=== PATIENT | female | born 1955 | race Caucasian/White ===

== ENCOUNTER → 2018-02-07 | Outpatient (CLI) | payer BC ==
--- NOTE | 2018-02-07 16:53 | Diagnostic Imaging Report ---
EXAM: CT Abdomen and Pelvis WITHOUT contrast INDICATION: \[id number] \S\1600 \S\CALCULUS OF KIDNEY COMPARISON: None. TECHNIQUE: Abdomen and pelvis were scanned utilizing a multidetector helical scanner from the lung base to the pubic symphysis without administration of IV contrast. Absence of intravenous contrast decreases sensitivity for detection of focal lesions and vascular pathology. Coronal and sagittal reformations were obtained. Routine protocol was performed. IV CONTRAST: None ORAL CONTRAST: Water COMPLICATIONS: None RADIATION DOSE: Total DLP: 530.99 mGy*cm Estimated effective dose: (DLP x 0.015 x size factor) mSv CTDIvol has been reviewed. It is below the limits set by the Radiation Protocol Committee (RPC). FINDINGS: LINES and TUBES: None. LOWER THORAX: Unremarkable. Lingular atelectasis/scarring. HEPATOBILIARY: Unenhanced liver is unremarkable. No biliary ductal dilation. GALLBLADDER: Cholecystectomy. SPLEEN: No splenomegaly. PANCREAS: No focal masses or ductal dilatation. ADRENALS: No adrenal nodules KIDNEYS/URETERS: No hydronephrosis. No cystic or solid mass lesions. 0.8 cm left inferior pole calculus. GI TRACT: No abnormal distention, wall thickening, or evidence of bowel obstruction. Appendix is normal. PELVIC ORGANS/BLADDER: Uterus and adnexa are unremarkable on unenhanced CT assessment. Bladder is decompressed, limiting evaluation. Pelvic phleboliths. LYMPH NODES: No lymphadenopathy. VESSELS: Unremarkable. PERITONEUM / RETROPERITONEUM: No free air or fluid. BONES: Unremarkable. SOFT TISSUES: Unremarkable. IMPRESSION: 1. 0.8 cm left inferior pole renal calculus. 2. No evidence of obstructive urolithiasis. Signed by: Dr. Kike Brown MD on 02/07/2018 4:49 PM
== END ==
LOC: CT 15:42
PROVIDERS: ATTEND Urology
DX: N20.0 Calculus of kidney (principal)
CPT/HCPCS: 74176

== ENCOUNTER → 2018-02-18 | Day surgery (SDC) | payer BC ==
[~2018-02-18] MED LIST: ATORVASTATIN CA20 MG PO; CEFTRIAXONE SOD 1 GM VIAL ONE; DEXAMETHASONE SOD PHOS INJ 4 MG/ML VIAL ONE; EPHEDRINE SULFATE INJ 50 MG/10 ML SYR ONE; FENTANYL CITRATE/PF 100MCG/2 ML INJ ONE; LIDOCAINE HCL 2% LOCAL INJ 5 ML SDV VIAL INJ ONE; LISINOPRIL2.5 MG PO; MIDAZOLAM HCL 2 MG/2 ML VIAL ONE; ONDANSETRON HCL INJ 2 MG/ML VIAL ONE; PHENYLEPHRINE HCL 1% 10 MG/ML VIAL ONE; PROPOFOL IV EMULSION 10 MG/ML 20 ML VIAL ONE; PROZAC20 MG PO; SEVOFLURANE INHAL SOLN 250 ML PEN BTL ONE; VALTREX500 MG PO; VIT D PO
--- OUTSIDE RECORDS SUMMARY | 2018-02-18 05:49 | XMS REPORT ---
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 Allergies, Adverse Reactions, Alerts This patient has no known allergies or adverse reactions. Medications This patient has no known medications. Results Test Description Test Time Test Comments Text Results Atomic Results Result Comments CT ABDOMEN/PELVIS WO [place] [address] Patient Name: CHRISTOPHER GIRON MR #: [id number] : 1955 Age/Sex: 62/F Req #: [id number] Adm Physician: Ordered by: GO US MD Report #: [id number] Location: CT Room/Bed: Procedure: [id number] CT/CT ABDOMEN/PELVIS WO Exam Date: 02/07/18 Exam Time: 1600 REPORT STATUS: Signed EXAM: CT Abdomen and Pelvis WITHOUT contrast INDICATION: COMPARISON: None. TECHNIQUE: Abdomen and pelvis were scanned utilizing a multidetector helical scanner from the lung base to the pubic symphysis without administration of IV contrast. Absence of intravenous contrast decreases sensitivity for detection of focal lesions and vascular pathology. Coronal and sagittal reformations were obtained. Routine protocol was performed. IV CONTRAST: None ORAL CONTRAST: Water COMPLICATIONS: None RADIATION DOSE: Total DLP: 530.99 mGy*cm Estimated effective dose: (DLP x 0.015 x size factor) mSv CTDIvol has been reviewed. It is below the limits set by the Radiation Protocol Committee (RPC) . FINDINGS: LINES and TUBES: None. LOWER THORAX: Unremarkable. Lingular atelectasis/scarring. HEPATOBILIARY: Unenhanced liver is unremarkable. No biliary ductal dilation. GALLBLADDER: Cholecystectomy. SPLEEN: No splenomegaly. PANCREAS: No focal masses or ductal dilatation. ADRENALS: No adrenal nodules KIDNEYS/URETERS: No hydronephrosis. No cystic or solid mass lesions. 0.8 cm left inferior pole calculus. GI TRACT: No abnormal distention, wall thickening, or evidence of bowel obstruction. Appendix is normal. PELVIC ORGANS/BLADDER: Uterus and adnexa are unremarkable on unenhanced CT assessment. Bladder is decompressed, limiting evaluation. Pelvic phleboliths. LYMPH NODES: No lymphadenopathy. VESSELS: Unremarkable. PERITONEUM / RETROPERITONEUM: No free air or fluid. BONES: Unremarkable. SOFT TISSUES: Unremarkable. IMPRESSION: 1. 0.8 cm left inferior pole renal calculus. 2. No evidence of obstructive urolithiasis. Signed by: Dr. Kike Lutz MD on 02/07/2018 4:49 PM Dictated By: KIKE LUTZ MD 48 Transcribed By: JAVON on 02/07/181648 COPY TO: GO US MD
--- NOTE | 2018-02-18 08:01 | Operative Report ---
DATE OF PROCEDURE: February 18, 2018 PREOPERATIVE DIAGNOSIS: Left kidney stone. POSTOPERATIVE DIAGNOSIS: Left kidney stone. PROCEDURES 1. Staged shock wave lithotripsy. 2. Supervision of fluoroscopy. ANESTHESIA: General. ESTIMATED BLOOD LOSS: Minimal. COMPLICATIONS: None. INDICATIONS FOR PROCEDURE: Ms. Ramirez is a 62-year-old female with a left kidney stone. She and I had a long discussion about alternatives, risks and benefits, including doing nothing, shock wave lithotripsy, ureteroscopy, percutaneous surgery and open surgery. She voiced understanding of the options, alternatives, risks, and benefits, and elected to proceed. PROCEDURE IN DETAIL: After informed consent was obtained, the patient was taken to the operative suite, placed supine on the operating table, and underwent general anesthesia. Was placed in the supine position on the lithotripsy table. The stone was localized in the X, Y and Z planes. A total of 3000 shocks at a maximum power setting of 6 were delivered to the stone. The patient tolerated the procedure well and was transported to the recovery room in excellent condition with no untoward events noted. SUPERVISION OF FLUOROSCOPY: I was present throughout the entire procedure and I supervised the use of fluoroscopy for all 35 seconds. Total radiation dose 28.22 milligray per meter squared. Job#: [id number] MT
--- NOTE | 2018-02-18 10:51 | Diagnostic Imaging Report ---
PROCEDURE:X-RAY ABDOMEN - KUB COMPARISON:CT abdomen and pelvis 02/07/2018. INDICATIONS:PRE-OP, LEFT RENAL STONE FINDINGS: There is a non-obstructed bowel-gas pattern. Right upper quadrant surgical clips. Moderate amount of retained feces is present in the colon and rectum. 7.9 mm calculus projects over the interpolar region of the left kidney. There are no calcifications projected over the right renal shadow, expected course of the ureters or bladder. There are no acute osseous abnormalities. The lung bases are clear. CONCLUSION: Left nephrolithiasis. Dictated by: Gabe Rome M.D. on 02/18/2018 at 10:52 Electronically approved by: Gabe Rome M.D. on 02/18/2018 at 10:52
== END | disposition home or self-care (01) ==
LOC: OR 05:48
PROVIDERS: ATTEND Urology
DX: N20.0 Calculus of kidney (principal); N39.0 Urinary tract infection, site not specified; R35.1 Nocturia; R32 Unspecified urinary incontinence; G47.33 Obstructive sleep apnea (adult) (pediatric); I10 Essential (primary) hypertension; F32.9 Major depressive disorder, single episode, unspecified; F41.9 Anxiety disorder, unspecified; Z01.810 Encounter for preprocedural cardiovascular examination; Z79.82 Long term (current) use of aspirin; Z87.891 Personal history of nicotine dependence; Z86.73 Personal history of transient ischemic attack (TIA), and cerebral infarction without residual deficits
CPT/HCPCS: 50590; 74018; 93005; J0696; J1100; J2001; J2250; J2370; J2405

== ENCOUNTER → 2018-12-14 | Day surgery (SDC) | payer BC ==
[~2018-12-14] MED LIST changes: +ACETAMINOPHEN 1000 MG/100 ML 100 ML IV ONE; -CEFTRIAXONE SOD 1 GM VIAL ONE; +CEFTRIAXONE SOD 1 GM/NS 50 ML 50 ML IV ONE; -EPHEDRINE SULFATE INJ 50 MG/10 ML SYR ONE; +FISH OIL 1,0001 EAC2 PO; +MELATONIN3 MG PO; -ONDANSETRON HCL INJ 2 MG/ML VIAL ONE; +ONDANSETRON HCL INJ 2MG/ML 2ML 2 MG/ML VIAL ONE; -PHENYLEPHRINE HCL 1% 10 MG/ML VIAL ONE; +PREMARIN0.625 MG PO; +PRILOSEC10 M1 PO; +PROGESTERONE100 MG PO; +ZYRTEC-D TABLE1 EACH PO
--- NOTE | 2018-12-14 11:01 | Diagnostic Imaging Report ---
CORRECTION Corrected on: 12/26/2018; By Grethcen Bermeo - [place] [id number] at 17:05 Dictated by: Davin Mendez D.O. on 12/26/2018 at 17:18 Electronically approved by: Davin Mendez D.O. on 12/26/2018 at 17:18 PROCEDURE:X-RAY ABDOMEN - KUB COMPARISON:[facility], DX, ABDOMEN-1VIEW (KUB), 02/18/2018, 5:48. INDICATIONS:RENAL STONES FINDINGS: Previously described stone within the interpolar region of the left kidney now overlies the lower pole and now measures 8.1 mm (previously measured 7.9 mm). There are no dilated loops of bowel to suggest obstruction. There are no masses. Clips in the right upper quadrant of the abdomen. Multiple small pelvic calcifications. There is no evidence of free air. No acute osseous abnormalities are present. CONCLUSION: Left renal lithiasis. Davin Mendez D.O. Dictated by: Davin Mendez D.O. on 12/12/2018 at 14:56 Electronically approved by: Davin Mendez D.O. on 12/12/2018 at 14:56
[2018-12-14 15:52] VITALS: BP 128/56
--- NOTE | 2018-12-14 23:10 | Operative Report ---
DATE OF PROCEDURE: 12/14/2018 SURGEON: Cisco Gurrola MD PREOPERATIVE DIAGNOSIS: Left kidney stone. POSTOPERATIVE DIAGNOSIS: Left kidney stone. PROCEDURE: 1. Staged left-sided shock wave lithotripsy. 2. supervision of fluoroscopy. ANESTHESIA: General. ESTIMATED BLOOD LOSS: Minimal. COMPLICATIONS: None. INDICATIONS: Ms. Ramirez is a 63-year-old female with a history of left kidney stone. She and I had a long discussion regarding the alternatives, the risks and the benefits, including doing nothing, shock wave lithotripsy, ureteroscopy, percutaneous open surgery. She voiced understanding of the options, of the alternatives, of the risks, and the benefits and she elected to proceed. PROCEDURE IN DETAIL: After informed consent was obtained, the patient was taken to the operative suite. She was placed supine on the operating table. She underwent general anesthesia by the service. The stone was localized IN X,Y,Z PLANES. A total of 3000 shocks were delivered to the stone. The patient tolerated the procedure well, was transferred to recovery room in excellent condition. MD REBECA Soto/MODL /[id number]
== END | disposition home or self-care (01) ==
LOC: OR 10:11
PROVIDERS: ATTEND Urology
DX: N20.0 Calculus of kidney (principal); G47.33 Obstructive sleep apnea (adult) (pediatric); I10 Essential (primary) hypertension; K21.9 Gastro-esophageal reflux disease without esophagitis; A60.00 Herpesviral infection of urogenital system, unspecified; F32.9 Major depressive disorder, single episode, unspecified; F41.9 Anxiety disorder, unspecified; Z91.012 Allergy to eggs; Z01.810 Encounter for preprocedural cardiovascular examination; Z86.73 Personal history of transient ischemic attack (TIA), and cerebral infarction without residual deficits; Z87.891 Personal history of nicotine dependence
CPT/HCPCS: 50590; 74018; 93005; J0131; J0696; J1100; J2001; J2250; J2405; J2704

== ENCOUNTER 2019-01-10 09:49 | Emergency (ER) | payer BC ==
[~2019-01-10] VITALS: Ht 160 cm; Wt 77.1 kg
[~2019-01-10 09:49] MED LIST changes: -ACETAMINOPHEN 1000 MG/100 ML 100 ML IV ONE; -CEFTRIAXONE SOD 1 GM/NS 50 ML 50 ML IV ONE; -DEXAMETHASONE SOD PHOS INJ 4 MG/ML VIAL ONE; -FENTANYL CITRATE/PF 100MCG/2 ML INJ ONE; -LIDOCAINE HCL 2% LOCAL INJ 5 ML SDV VIAL INJ ONE; -MIDAZOLAM HCL 2 MG/2 ML VIAL ONE; -ONDANSETRON HCL INJ 2MG/ML 2ML 2 MG/ML VIAL ONE; -PROPOFOL IV EMULSION 10 MG/ML 20 ML VIAL ONE; -SEVOFLURANE INHAL SOLN 250 ML PEN BTL ONE
[2019-01-10] MEDS ORDERED: KETOROLAC TROMETHAMINE 30 MG/ML VIAL IV STA (10:24)
[2019-01-10] MEDS ORDERED: ONDANSETRON HCL INJ 2MG/ML 2ML 2 MG/ML VIAL IV STA (10:24)
[2019-01-10 10:38] LABS: BASOPHILS % 0.3 % (0.0-1.0); EOSINOPHILS % 0.6 % (0.0-6.0); HEMATOCRIT 39.6 % (34.2-44.1); LYMPHOCYTES # (AUTO) 1.3 (1.0-3.2); LYMPHOCYTES % 19.8 % (18.0-39.1); MEAN CORPUSCULAR HGB CONC 32.8 g/dL (31-35); MEAN CORPUSCULAR VOLUME 97.5 fL (81-99); MONOCYTES # (AUTO) 0.3 (0.2-0.8); MONOCYTES % 3.8 % (4.4-11.3); NEUTROPHILS # (AUTO) 4.9 (2.1-6.9); NEUTROPHILS % 75.2 % (38.7-80.0); PLATELET COUNT 258 x10e3/uL (140-360); RED BLOOD COUNT 4.06 x10e6/uL (3.6-5.1); RED CELL DISTRIBUTION WIDTH 12.4 % (11.7-14.4)
[2019-01-10 10:52] LABS: ALBUMIN 3.4 g/dL (3.5-5.0); ALBUMIN/GLOBULIN RATIO 0.9 (0.8-2.0); ANION GAP 14.7 mmol/L (8-16); CALCIUM 9.4 mg/dL (8.4-10.2); CREATININE, SERUM 0.98 mg/dL (0.57-1.11); POTASSIUM 3.7 mmol/L (3.5-5.1)
[2019-01-10 10:55] LABS: BILIRUBIN,URINE NEGATIVE (NEGATIVE); CLARITY,URINE CLEAR (CLEAR); COLOR,URINE YELLOW (YELLOW); KETONES,URINE TRACE (NEGATIVE); LEUKOCYTE ESTERASE ,URINE NEGATIVE (NEGATIVE); NITRITE,URINE NEGATIVE (NEGATIVE); PROTEIN,URINE DIPSTICK TRACE (NEGATIVE); URINE UROBILINOGEN 0.2 mg/dL (0.2 - 1)
[2019-01-10 11:17] LABS: EPITHELIAL CELLS,URINE MODERATE /LPF
[2019-01-10 11:18] LABS: BACTERIA,URINE MODERATE /HPF; RBC,URINE >50 /HPF (0-5); WBC,URINE (MAN) 0-5 /HPF (0-5)
--- NOTE | 2019-01-10 11:28 | Diagnostic Imaging Report ---
EXAM: CT of the abdomen and pelvis WITHOUT contrast HISTORY: Left and Right flank r/o kidney stone, abdominal pain, gross hematuria, history of lithotripsy, cholecystectomy COMPARISON: CT of the abdomen and pelvis February 07, 2018 TECHNIQUE: The abdomen and pelvis were scanned utilizing a multidetector helical scanner. Coronal and sagittal reformats are available. PROTOCOL: Renal colic IV CONTRAST: None, which limits sensitivity and specificity of evaluation of the soft tissues and vascular structures. ORAL CONTRAST: None, which limits sensitivity and specificity of evaluation of the bowel. RADIATION DOSE: Total DLP: 527.79 mGy*cm Estimated effective dose: (DLP x 0.015 x size factor) Dose modulation, iterative reconstruction, and/or weight based adjustment of the mA/kV was utilized to reduce the radiation dose to as low as reasonably achievable. COMPLICATIONS: None FINDINGS: LINES and TUBES: None. LOWER THORAX: No effusions or airspace consolidation. HEPATOBILIARY: Unenhanced liver remains unremarkable. No biliary ductal dilation. GALLBLADDER: Metallic clips in the right upper quadrant of the abdomen are compatible with prior cholecystectomy. Stable subtle calcifications in the gallbladder fossa. SPLEEN: No splenomegaly. PANCREAS: No focal masses or ductal dilatation. ADRENALS: No adrenal nodules KIDNEYS/URETERS: Mild left hydroureteronephrosis. Mildly increased size of the stone at the inferior pole of the right kidney, measuring 0.9 x 0.6 cm. GI TRACT: No abnormal distention, wall thickening, or evidence of bowel obstruction. Minimal sigmoid diverticulosis. Appendix is normal. PELVIC ORGANS/BLADDER: There are no bladder is predominantly decompressed, which limits evaluation. The uterus is mildly anteflexed. LYMPH NODES: No lymphadenopathy. VESSELS: Minimal scattered atherosclerotic vascular calcifications. PERITONEUM / RETROPERITONEUM: No free air or fluid. BONES: No aggressive osseous lesion. Multifocal degenerative changes, most notably severe of the pubic symphysis and the L5-S1 facets. SOFT TISSUES: Unremarkable. IMPRESSION: 1. Mild left hydroureteronephrosis, may reflect a recently passed stone. 2. Slightly increased stone burden at the inferior pole of the left kidney. Signed by: Dr. Marcus Ramos D.O., M.M.M. on 01/10/2019 11:24 AM
[2019-01-10] MEDS ORDERED: SODIUM CHLORIDE 0.9% 1000ML 1,000 ML IV SCH (11:45)
--- NOTE | 2019-01-10 12:28 | NUR ---
DR. PEREIRA IN TO EVAL PT IN TREATMENT ROOM. PT MEDICATED ORDERED.
[2019-01-10] MEDS ORDERED: CEFTRIAXONE SOD 1 GM/NS 50 ML 50 ML IV ONE (12:30)
[2019-01-10 14:01] VITALS: BP 119/70
== END 2019-01-10 14:00 | disposition home or self-care (01) ==
LOC: ER 09:49
DX: R11.2 Nausea with vomiting, unspecified (principal); R10.9 Unspecified abdominal pain; N39.0 Urinary tract infection, site not specified; I10 Essential (primary) hypertension
CPT/HCPCS: 36415; 74176; 80053; 81001; 85025; 87086; 99284; J0696; J1885; J7030

== ENCOUNTER → 2020-06-21 | Day surgery (SDC) | payer BC ==
--- NOTE | 2020-06-17 17:04 | Diagnostic Imaging Report ---
Abdomen-KUB INDICATION: ^[id number] ^[id number] ^PRE-OP Comparison: CT dated 01/10/2019 and x-ray dated 12/12/2018. Discussion: There is a 9 mm stone within the central interpolar region of the left kidney. This likely relates to the previously noted left inferior pole stone versus interval passage of the stone and formation of a new stone. No other suspicious calcification. Stable post surgical to cholecystectomy. Bowel loops are nondilated. Moderate stool burden is noted within the right colon and rectum. Stable advanced degenerative changes L5-S1. Negative for acute osseous abnormality. IMPRESSION: There is a 9 mm calculus projecting within the medial left interpolar region which could relate the previously noted left lower pole stone. Alternatively this could represent a new stone with interval removal of the previously noted left inferior pole stone. Signed by: John Alvares MD on 06/17/2020 5:01 PM
[~2020-06-21] MED LIST changes: +ACETAMINOPHEN/CODEINE 300MG - 30MG TAB ONE; +CEFTRIAXONE SOD 1 GM/NS 50 ML 50 ML IV ONE; +DEXAMETHASONE SOD PHOS INJ 4 MG/ML VIAL ONE; +FENTANYL CITRATE/PF 100MCG/2 ML INJ ONE; +IOPAMIDOL 300MG/ML 50ML INFUS..BTL IV ONE; +LIDOCAINE HCL 2% LOCAL INJ 5 ML SDV VIAL INJ ONE; +MIDAZOLAM HCL 2 MG/2 ML VIAL ONE; +ONDANSETRON HCL INJ 2MG/ML 2ML 2 MG/ML VIAL ONE; -PREMARIN0.625 MG PO; +PREMARIN0.625 MG TD; +PROPOFOL IV EMULSION 10 MG/ML 20 ML VIAL ONE; +SEVOFLURANE INHAL SOLN 250 ML PEN BTL ONE; +WELLBUTRIN SR150 MG PO
[2020-06-21 12:15] VITALS: BP 130/60
--- NOTE | 2020-06-25 14:10 | Operative Report ---
DATE OF PROCEDURE: 06/21/2020 SURGEON: Cisco Gurrola MD PREOPERATIVE DIAGNOSIS: Left kidney stone. POSTOPERATIVE DIAGNOSIS: Left kidney stone. PROCEDURES: 1. Staged shock wave lithotripsy, left side. 2. Supervision of fluoroscopy. ANESTHESIA: General. ESTIMATED BLOOD LOSS: Minimal. COMPLICATIONS: None. INDICATIONS: The patient is a very pleasant 64-year-old female with a history of intermittently symptomatic left-sided kidney stone. She and I had a long discussion of alternatives, risks, and benefits of doing nothing, shock wave lithotripsy, ureteroscopy, percutaneous surgery, or open surgery. She voiced understanding of the options, alternatives, the risks, and benefits and elected to proceed. PROCEDURE IN DETAIL: After informed consent was obtained, the patient was taken to the operative suite, she was placed supine on the operating table, and underwent general anesthesia by the Anesthesia Service. Stone was localized in the X, Y, and Z planes. Treatment was performed per the treatment report. The patient tolerated the procedure well, transferred to recovery room in excellent condition. No untoward effects noted. Supervision of fluoroscopy: I was present for the entire procedure and supervised fluoroscopy. There was no radiologist present. Dosages per treatment report. Cisco Gurrola MD ES/MODL /[id number]
== END | disposition home or self-care (01) ==
LOC: OR 09:39
PROVIDERS: ATTEND Urology
DX: N20.0 Calculus of kidney (principal); Z91.19 Patient's noncompliance with other medical treatment and regimen; R35.1 Nocturia; G47.33 Obstructive sleep apnea (adult) (pediatric); I10 Essential (primary) hypertension; E78.5 Hyperlipidemia, unspecified; Z91.012 Allergy to eggs; Z01.810 Encounter for preprocedural cardiovascular examination; Z01.812 Encounter for preprocedural laboratory examination; Z01.818 Encounter for other preprocedural examination; Z11.59 Encounter for screening for other viral diseases; Z86.73 Personal history of transient ischemic attack (TIA), and cerebral infarction without residual deficits
CPT/HCPCS: 50590; 74018; 93005; J0696; J1100; J2001; J2250; J2405; J2704; J3010; U0002